=== PATIENT | male | born 1980 | race Caucasian/White ===

== ENCOUNTER 2019-06-15 10:26 | Emergency (ER) | payer SELFPAY ==
--- NOTE | 2019-06-15 11:49 | RAD ---
EXAM: Chest PA and lateral: HISTORY: Cough and chest congestion COMPARISON: None FINDINGS: Heart size:Within normal limits. Lungs:Clear of acute process. No confluent pneumonia, overt edema, pleural effusion, or other acute process. IMPRESSION: No significant acute intrathoracic disease.
== END 2019-06-15 11:59 | disposition home or self-care (01) ==
LOC: SCSER 10:26
DX: R05 Cough (principal); Z87.891 Personal history of nicotine dependence
CPT/HCPCS: 71046; 93005